=== PATIENT | female | born 1970 | race African-American/Black ===

== ENCOUNTER 2018-03-31 20:39 | Emergency (ER) | payer BC ==
[~2018-03-31] VITALS: Ht 157.5 cm; Wt 65.0 kg
[2018-03-31] MEDS ORDERED: LORAZEPAM 0.5MG TABLET PO ONE ×2 (21:45→23:00)
[2018-03-31 22:18] LABS: *AMPHETAMINES SCREEN URINE NEGATIVE (NEGATIVE); *BARBITURATES SCREEN URINE NEGATIVE (NEGATIVE); *BENZODIAZEPINES SCREEN URINE NEGATIVE (NEGATIVE); *COCAINE SCREEN URINE NEGATIVE (NEGATIVE); METHADONE URINE SCREEN NEGATIVE (NEGATIVE); OPIATES URINE SCREEN NEGATIVE (NEGATIVE)
[2018-03-31 22:19] LABS: PHENCYCLIDINE URINE SCREEN NEGATIVE (NEGATIVE)
[2018-03-31 22:29] LABS: CANNABINOID URINE SCREEN PRESUMTIVE POSITIVE (NEGATIVE)
[2018-03-31 23:15] VITALS: BP 147/87
== END 2018-03-31 23:24 | disposition home or self-care (01) ==
LOC: ER 20:39
DX: T40.7X1A Poisoning by cannabis (derivatives), accidental (unintentional), initial encounter (principal); R00.2 Palpitations; R42 Dizziness and giddiness; I10 Essential (primary) hypertension; E11.9 Type 2 diabetes mellitus without complications; Y92.89 Other specified places as the place of occurrence of the external cause
CPT/HCPCS: 80305; 81025; 99283